=== PATIENT | female | born 2005 | race African-American/Black ===

== ENCOUNTER 2025-02-13 14:16 | Emergency (ER) | payer OTHER, SELFPAY ==
[2025-02-13 14:25] VITALS: BP 140/95; PULSE 77; RESP 18; TEMP 36.6; O2SAT 98
--- NOTE | 2025-02-13 14:32 | ED_ITS ---
HPI - Back Pain/Injury General Chief Complaint: Back Pain/Injury Stated Complaint: Back and Neck Pain Time Seen by Provider: 02/13/25 14:32 Source: patient and RN notes reviewed Mode of arrival: ambulatory Limitations: no limitations History of Present Illness HPI Narrative: 19-year-old female presents to the [facility] with upper back pain and neck pain with no injury. Pain is worse with movement. Reports that she has taken Motrin and Tylenol. Symptoms for 2 weeks. Upon entering the exam room patient is sitting in a chair, looking down at cell phone. Onset (ago): week(s) (2) Related Data Allergies Allergy/AdvReac Type Severity Reaction Status Date / Time No Known Allergies Allergy Verified 02/13/25 14:27 Review of Systems 2 Review of Systems: All systems reviewed & are unremarkable except as noted in HPI and below Constitutional: Constitutional: Reports no additional constitutional complaints ENT: Reports system reviewed and no additional complaints, except as documented Cardiovascular: Cardiovascular: Reports no additional cardiovascular complaints, Denies chest pain and Denies dyspnea Respiratory: Respiratory: Reports no additional respiratory complaints, Denies chest congestion, Denies cough and Denies dyspnea Musculoskeletal: Musculoskeletal: Reports as per HPI Integumentary/Breasts: Skin/Breast: Reports system reviewed and no additional complaints, except as docu PMFSH Comments At the time of my signature, I reviewed and agree with the nursing past medical, surgical, social, and family history. There is no relevant family history pertinent to the patient complaint. Exam 2 Const: General: cooperative, healthy appearing, comfortable, no acute distress, well developed, alert and well nourished Nutritional Appearance: w ell nourished and obese Orientation/consciousness: patient oriented x3 L imitations: no limitations HENMT: Head: normal to inspection Ears: hearing grossly normal bilaterally, external ears normal, TM's normal bilaterally, EAC's normal, mastoids normal and no periauricular adenopathy Mouth: Yes Normal oral and palatal mucosa present, Yes lip normal, Yes tongue normal and Yes moist mucous membranes Eyes: General: appearance normal, both eyes and all related structures A lignment and Position: alignment normal Neck: Neck: normal visual inspection, full ROM, no lymphadenopathy and no meningeal signs Chest: Chest palpation & inspection: normal inspection of the chest Resp: Effort & Inspection: normal respiratory effort and able to speak in complete sentences Auscultation: clear to auscultation bilaterally, no crackles, no rales, no rhonchi and no wheezes Cardio: Rate: regular rate Back/Spine/Pelvis: Back: No erythema Back/spine/pelvis image: 1. Reports tenderness with movement, palpation. No midline tenderness. No injury. No erythema, ecchymosis. No rashes Skin: General skin exam: normal color and no rashes or lesions noted Neuro: General: patient oriented x3, gait normal, moves all extremities and no meningeal signs Cognition (Neuro): normal cognition Speech: normal speech Gait exam (Neuro): Normal gait present Extrem: General: normal to inspection, full ROM, capillary refill normal and normal gait Psych: Appearance: grossly normal and well kempt Mental Status: mental status grossly normal Speech and movement: Normal speech and movement present and Clear speech present Affect: normal affect Attitude: cooperative Course Course Level of Care: Express Care Visit Vital Signs Vital signs: Vital Signs Temperature 97.9 F 02/13/25 14:25 Pulse Rate 77 02/13/25 14:25 Respiratory Rate 18 02/13/25 14:25 Blood Pressure 140/95 H 02/13/25 14:25 Pulse Oximetry 98 02/13/25 14:25 Oxygen Delivery Room Air 02/13/25 14:25 Temperature 97.9 F 02/13/25 14:25 Pulse Rate 77 02/13/25 14:25 Respiratory Rate 18 02/13/25 14:25 Blood Pressure 140/95 H 02/13/25 14:25 Pulse Oximetry 98 02/13/25 14:25 Oxygen Delivery Room Air 02/13/25 14:25 Reviewed MDM - Back Pain/Injury MDM Narrative Medical decision making narrative: Patient sitting in exam. Patient is nontoxic, vitals stable. Patient presents with low neck, upper back pain. Most likely due to poor posture while texting and surfing on her cellphone. Will prescribe muscle relaxer. Discussed the importance of good posture, importance of following up which she verbalized understanding. Discharge instructions reviewed with patient, as well as provided in writing per nursing staff. The instructions also include specific and strict return/GO TO THE ER as well as f/u information. All questions have been answered, and the patient deny any further questions with discharge and discharge plan. Some parts of this dictation were generated by voice recognition software and may contain typographical and/or grammatical inaccuracies. Differential Diagnosis Differential diagnosis: Likely lumbar radiculopathy Critical Care Time Critical Care Time Critical Care Time: No Discharge Plan Discharge Clinical Impression: Acute upper back pain Patient Disposition: Home Condition: Stable Instructions: Back Pain (ED), Acute Neck Pain (ED) Additional Instructions: Take ibuprofen as directed to decrease inflammation and to help pain. Take Baclofen (muscle relaxer) as directed. Do not drink, drive, operate machinery, or do anything dangerous while taking this medication Exercise:Combine aerobic exercise, like walking or swimming, with specific exercises to keep the muscles in your back and abdomen strong and flexible. Proper Lifting:Be sure to lift heavy items with your legs, not your back. Do not bend over to pick something up. Keep your back straight and bend at your knees. Weight:Maintain a healthy weight. Being overweight puts added stress on your lower back. Avoid Smoking:Both the smoke and the nicotine cause your spine to age faster than normal. Proper Posture:Good posture is important for avoiding future problems. A therapist can teach you how to safely stand, sit, and lift. Use warm moist heat to help with pain. Using topical such as Biofreeze, Pato-Ndiaye or Aspercreme can also help Follow up with Primary provider in 2-3 days, This may become a chronic condition and they will be the one to help manage your pain and order additional testing. Go to the nearest ER if you develop problems with bladder/bowel function, weakness or loss of feeling in one or both of your legs. Patient Language: Afghan Prescriptions: New baclofen 10 mg tablet 10 mg PO TID PRN (Reason: muscle pain) Qty: 10 0RF ibuprofen 600 mg tablet 600 mg PO TID PRN (Reason: fever or pain) Qty: 30 0RF Follow-up/Referrals: UNKNOWN,DOCTOR [Primary Care Provider] Time of Disposition: 15:13
== END 2025-02-13 15:17 | disposition home or self-care (01) ==
PROVIDERS: Emergency Provider Nurse Practitioner
DX: M54.6 Pain in thoracic spine (principal)
CPT/HCPCS: 99203; G0463